=== PATIENT | male | born 1955 | race Caucasian/White ===

== ENCOUNTER 2017-10-19 15:00 | Outpatient (RCR) | payer BC, SELFPAY ==
--- NOTE | 2017-08-19 08:52 | HP.PTEVAL ---
Patient's Visit Information DI BOWMAN is a 62 year old M referred to Physical Therapy by MD STEVE Ayoub with a diagnosis of R total shoulder replacement. Date of Evaluation: 08/18/17 Physical Therapist: Samuel Doss - Visit Plan Frequency: 2x /Week Duration: 2-4 Months Plan: Start with phase I progress this to HEP with spouse. Progress per protocol. Goal of 130deg of flexion and 30deg of ER passively by 4 weeks. - Subjective Subjective: Pt. 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 DOS 08/09/17. Pt. reports minimal pain at this point in time. Pt. reports that his other shoulder will likely need replaced as well, planning on having it down in March of 2018. Pt. remains in sling, but does take it off for periods of time at home while resting. Pt. has been having working on shoulder flexion to ~90deg without issues. Pt. is having difficulty sleeping secondary to inability to get comfortable. Pt. recently saw physician who was happy with current progress. Pt. 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 Pt. is hopeful to increase his ROM and get back to all recreational activities without limitations. - Pain R shoulder Pain Intensity (Out of 10): 0 Pain Intensity Range: 0, 2 - Objective POSTURE: Pt. keeps arm in guarded positioing while out of sling. Pt. has normal shoulder heights bilaterally. Pt. has slight FH positioning bilaterally with protracted scapulea bilaterally. PALAPTION: Pt. has normal well healing anterior incision. Pt. has no signs of infection, minimal heat/redness. Pt. has slight brusing and edeam in bicep and elbow. Pt. has presence of R bicep rupture without repair, (known to patient). NEUROLOGICAL: Pt. has normal sensation to light and sharp touch of bilateral UEs. Pt. has 2+ triceps and biceps bilaterally. ROM: L shoulder AROM- flexion 98deg, abd 88deg, functonal ER external auditory meatus, functional IR L5. R shoulder PROM- flexion- 116deg, scaption 118deg, ER at side 25deg. Pt. had soreness at end ranges, with empty end feels. Pt. has full elbow ROM, mild stiffness with extension. MMT- RUE not testing. LUE- elbow- 5/5 throughout; shoulder- flexion 4+/5, abd 4/5, ext 5/5, ER 4+/5, IR 4+/5. - Goals Goal 1:: Pt. to be I with HEP. Goal Time Frame: 4-6 Weeks Goal 2:: Pt. to have increased PROM of R shoulder to flexion 170deg, abd 170deg, ER 50deg, IR 50deg. Goal Time Frame: 4-6 Weeks Goal 3:: Pt. to have full R shoulder AROM to allow for increased ability to complete all functional mobility without increase in symptoms. Goal Time Frame: 6-8 Weeks Goal 4:: Pt. to have increased R shoulder strength to 4+/5 throughout allowing for increased tolerance with all recreational and work activities. Goal Time Frame: 8-12 Weeks Goal 5:: Pt. to sleep throughout the night without increase in symptoms. Goal Time Frame: 2-4 Weeks Goal 6:: Pt. to return to all recreational activities without increase in symptoms. Goal Time Frame: 12-16 Weeks - Rehabilitation Potential Physical Therapy Diagnosis: Pt. has signs and symptoms consistent with acute R total shoulder replacement with subsequent hypombility, weakness, increased pain and decreased functional use of RUE. Pt. would benefit from PT to initially increase his ROM, progressing to AROM and finally strengthening as able to get back to all recreational and work activities without limitations. Rehabilitation Potential: Excellent - Anticipated Interventions Patient/Client Instruction: Educate patient on: Condition, Plan of Care, Risk Factors, Benefits of Fitness Program For the Purpose of:: To improve decision making, To facilitate caregiver knowledge, To improve self management, To prevent re-injury, To improve ability to perform tasks related to life management, To improve tolerance to ADL's Therapeutic Exercise to Include: Strength training, Power training, Endurance training, Flexibilty training, Passive ROM, Active ROM, Scapular Strength/Stabilization For the Purpose of:: To decrease pain, To decrease swelling/inflammation, To increase ROM, To improve nutrient delivery to tissue, To increase oxygenation perfusion, To improve muscle performance and motor function, To increase tolerance to activity/condition/position, To improve performance and independence with ADL's, To improve health of tissue, To decrease soft tissue restriction, To increase flexibility/ROM Manual Therapy Techniques to Include: Mobilization, Passive ROM, Soft tissue mobilization For the Purpose of:: To decrease pain, To decrease swelling/inflammation, To increase ROM, To improve nutrient delivery to tissue IF ES: Yes Cryotherapy (ice pack, ice massage): Yes For the Purpose of:: To decrease pain, To decrease swelling/inflammation, To increase ROM Thank you for the opportunity to evaluate your patient. For Medicare and Medicare HMO plans, please review the plan of care and approve it. It will need to be FAXED BACK to us at [phone] for Medicare purposes. Please let me know if there are questions or concerns regarding this plan of care. Physician Signature: Date:
--- NOTE | 2017-10-21 13:35 | HP.PTDCSUM_ITS ---
HP - PT D/C Summary It has been my pleasure to treat DI BOWMAN under orders from Dar Stern MD, for the diagnosis of R total shoulder replacement for a total of 7 visit(s). Discharge Date: 10/19/17 Please see the following information for a summary of their discharge status. - Subjective Subjective: Pt. reports no issues currently. He has been back to mulching and some work without pain, but muscle soreness. I talked to patient about not over doing and continuing to strengthen with in eye sight ranges. Pt. consents. - Pain R shoulder Pain Intensity (Out of 10): 0 - Overall Improvement % Improvement: 95 - Objective Objective/Function: ROM- R shoulder- flexion 175deg, abd 173deg, functional ER C6, functional IR T12. No pain with testing this date. MMT- R shoulder- flexion 4+/5, abd 4+/5, ext 5/5, ER 4+/5, IR 5/5. No pain with testing. Pt. has expected ROM and progression of strengthening as expected. Pt. report no issues with work or with sleeping at this point in time. He is back to work and household work without issues. He does report increased muscle soreness with activities, but is very pleased with progress. - Goals Goal 1:: Pt. to be I with HEP. Goal Progress: Goal Met Goal 2:: Pt. to have increased PROM of R shoulder to flexion 170deg, abd 170deg , ER 50deg, IR 50deg. Goal Progress: Goal Met Goal 3:: Pt. to have full R shoulder AROM to allow for increased ability to complete all functional mobility without increase in symptoms. Goal Progress: Goal Met Goal 4:: Pt. to have increased R shoulder strength to 4+/5 throughout allowing for increased tolerance with all recreational and work activities. Goal Progress: Progressing Goal 5:: Pt. to sleep throughout the night without increase in symptoms. Goal Progress: Goal Met Goal 6:: Pt. to return to all recreational activities without increase in symptoms. Goal Progress: Goal Met - Plan Plan: Pt. will be DC to HEP at this point in time. - D/C Information Discharge Comments: Pt. progressed as expected with PT. Pt. has close to full ROM and has improving strength. Pt. is back to all work and house hold work with minimal issues. He is progressing with strengthening as expected and is to progress with HEP for strengthening. Pt. will be DC from PT at this point in time and is to continue with HEP as instructed, pt. consents. If there are questions or concerns regarding this patient's physical therapy, please feel free to call me at [phone]. Thank you for the referral of this patient. Sincerely, Samuel Doss
== END 2017-10-19 19:00 | disposition home or self-care (01) ==
LOC: PT 15:00
PROVIDERS: Family Provider Family Medicine; PCP Family Medicine; Visit Provider Orthopaedic Surgery
DX: M19.011 Primary osteoarthritis, right shoulder (principal)
CPT/HCPCS: 97110; 97161

== ENCOUNTER 2018-06-08 18:30 | Outpatient (RCR) | payer BC, SELFPAY ==
--- NOTE | 2018-03-16 11:07 | HP.PTEVAL ---
Patient's Visit Information DI BOWMAN is a 63 year old M referred to Physical Therapy by UBALDO KEENAN with a diagnosis of Left total shoulder and biceps tenodesis. Date of Evaluation: 03/15/18 Physical Therapist: Samuel Doss - Visit Plan Frequency: 2-3x /Week Duration: 6-8 weeks Plan: Follow Dr. Dar Stern's total shoulder protocol: week 1-4 work passive, progress to active/assistive weeks 5 and 6, begin resisted week 7 increasing strength as tolerated. - Subjective Subjective: Pt is here today for an initial evaluation of their left total shoulder and biceps tendesis performed on 02/28/2018. pt reports on this date wearing a shoulder sling. pt does not wear the sling around the home but wears it when out of the house for safety and increased security. 7 months ago pt received a right total shoulder. pt reports increased sorness in their right shoulder due to increased use of right shoulder following the left shoulder's surgery. pt has been sleeping in a recliner and reports significant difficulty sleeping. Pt continues to sleep in sling and reports tingling in the left hand during the night when increased pressure is placed on the left shoulder while sleeping. 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 Pt plans to return to work in one week following this date. Pt is left hand dominant. Pt. denies N/T in either UE. Pt. did have swelling in his hand, but is no longer present. He has taken his arm out of the sling at home, but not in community. Pt. is eager to get back to all work and recreational activites without limitations. - Pain Left Shoulder Pain Intensity (Out of 10): Unrated - Objective POSTURE: significant forward head with rounded shoulders. increased kyphosis. Pt. is able to correct with VC/TCing, no increase in symptoms with postural changes. PALPATION: scar is healing properly. no sign of infection. Pt. has slight swelling at shoulder, non pitting. NEURO: equal sensation bilat. no numbness or tingling. Pt. has 2+ bilateral biceps and triceps DTR. PROM: Right UE: WFL; Left UE: shoulder- flexion- 0-130, ER- 0-25, scaption 130deg. flexion and ER were the only motions measured this date due to surgical precautions. AROM was not tested this date. MMT: not tested this date due to surgical precautions. 4+/5 on RUE throughout. - Goals Goal 1:: Pt I with HEP Goal Time Frame: 6-8 Weeks Goal 2:: Pt reprots 0/10 pain in their L shoulder with motion in all directions allowing for increased ability to complete all ADls. Goal Time Frame: 6-8 Weeks Goal 3:: Pt improves L shoulder ROM symmetrical to R side without increase in symptoms. Goal Time Frame: 6-8 Weeks Goal 4:: Pt reports being able to sleep uninterrupted entire night. Goal Time Frame: 4-6 Weeks Goal 5:: pt improves strength to 4+/5 in all effected musculature Goal Time Frame: 6-8 Weeks - Rehabilitation Potential Physical Therapy Diagnosis: pt presents with signs and symptoms consistent with left total shoulder and biceps tenodesis. pt presents with decreased PROM inhibiting performance of ADLs and IADLs. pt would benefit from PT to promote healing, increased strength, and improved ROM allowing for the pt to return to work and perform all ADLs and IADLs. Rehabilitation Potential: Excellent - Anticipated Interventions Patient/Client Instruction: Educate patient on: Condition, Plan of Care, Risk Factors, Benefits of Fitness Program For the Purpose of:: To decrease pain, To decrease swelling/inflammation, To increase ROM, To improve muscle performance and motor function, To improve ability to perform ADL's, To increase tolerance to activity/condition/position Therapeutic Exercise to Include: Strength training, Power training, Passive ROM, Active ROM For the Purpose of:: To decrease pain, To increase ROM, To improve muscle performance and motor function, To improve ability to perform ADL's, To increase tolerance to activity/condition/position, To improve ability of physical actions for home/community/work/leisure Manual Therapy Techniques to Include: Scar massage For the Purpose of:: To decrease pain, To improve nutrient delivery to tissue Cryotherapy (ice pack, ice massage): Yes Thermo therapy (hot pack): Yes For the Purpose of:: To decrease pain, To decrease swelling/inflammation Thank you for the opportunity to evaluate your patient. For Medicare and Medicare HMO plans, please review the plan of care and approve it. It will need to be FAXED BACK to us at [phone] for Medicare purposes. Please let me know if there are questions or concerns regarding this plan of care. Physician Signature: Date:
--- NOTE | 2018-05-02 07:43 | HP.PTREVAL ---
UBALDO KEENAN, It has been my pleasure to treat DI BOWMAN over the last 7 visits for Left total shoulder and biceps tenodesis. Please see the progress note below for an update on the physical therapy plan of care! Subjective: Pt. reports 'I am getting better.' He reports that he has returned to work, but has not been using his L arm as much as he would like to. He reports having 1-2/10 soreness this date. Pt. reports being HEP compliant without increase in symptoms. Objective/Function: R shoulder- AROM- flexion 120deg, abd 120 deg, ext 50deg, functional ER C2, functional IR L5. PROM- flexion 160deg abd 155deg, ER at 90deg of abd 80deg. MMT- R shoulder- flexion 4/5, abd 4/5, ext 4/5, ER 4/5, IR 4/5. Pt. is able to complete most ADLs that do not involve lifting over his head, he still has to complete UB dressing with caution. Pt. denies N/T of either UE. Pt. is doing well, but continues to present with L UE weakness and would benefit from PT to increase strength and stability of L total shoulder arthroplasty. Plan Plan: Requesting date extension of visits in order to work on LUE strengthening and end range of shoulder motion. Goals Goal 1:: Pt I with HEP Goal Time Frame: 6-8 Weeks Goal Progress: Progressing Goal 2:: Pt reprots 0/10 pain in their L shoulder with motion in all directions allowing for increased ability to complete all ADls. Goal Time Frame: 6-8 Weeks Goal Progress: Progressing Goal 3:: Pt improves L shoulder ROM symmetrical to R side without increase in symptoms. Goal Time Frame: 6-8 Weeks Goal Progress: Progressing Goal 4:: Pt reports being able to sleep uninterrupted entire night. Goal Time Frame: 4-6 Weeks Goal Progress: Goal Met Goal 5:: pt improves strength to 4+/5 in all effected musculature Goal Time Frame: 6-8 Weeks Goal Progress: Progressing Anticipated Interventions Patient/Client Instruction: Educate patient on: Condition, Plan of Care, Risk Factors, Benefits of Fitness Program For the Purpose of:: To decrease pain, To decrease swelling/inflammation, To increase ROM, To improve muscle performance and motor function, To improve ability to perform ADL's, To increase tolerance to activity/condition/position Therapeutic Exercise to Include: Strength training, Power training, Passive ROM, Active ROM For the Purpose of:: To decrease pain, To increase ROM, To improve muscle performance and motor function, To improve ability to perform ADL's, To increase tolerance to activity/condition/position, To improve ability of physical actions for home/community/work/leisure Manual Therapy Techniques to Include: Scar massage For the Purpose of:: To decrease pain, To improve nutrient delivery to tissue Cryotherapy (ice pack, ice massage): Yes Thermo therapy (hot pack): Yes For the Purpose of:: To decrease pain, To decrease swelling/inflammation Please do not hesitate to contact me at [phone] by phone or if you have questions or concerns regarding this new plan of care! Sincerely, Samuel Doss
--- NOTE | 2018-09-05 18:14 | HP.PT.NRP ---
HP - Discharge Summary (1) - Patient Information DI BOWMAN was seen in my office for initial evaluation on 03/15/18. The following Plan of Care was established for this patient: Initial Frequency: 2-3x /Week Initial Duration: 6-8 weeks - Anticipated Interventions Patient/Client Instruction: Educate patient on: Condition, Plan of Care, Risk Factors, Benefits of Fitness Program For the Purpose of:: To decrease pain, To decrease swelling/inflammation, To increase ROM, To improve muscle performance and motor function, To improve ability to perform ADL's, To increase tolerance to activity/condition/position Therapeutic Exercise to Include: Strength training, Power training, Passive ROM, Active ROM For the Purpose of:: To decrease pain, To increase ROM, To improve muscle performance and motor function, To improve ability to perform ADL's, To increase tolerance to activity/condition/position, To improve ability of physical actions for home/community/work/leisure Manual Therapy Techniques to Include: Scar massage For the Purpose of:: To decrease pain, To improve nutrient delivery to tissue Cryotherapy (ice pack, ice massage): Yes Thermo therapy (hot pack): Yes For the Purpose of:: To decrease pain, To decrease swelling/inflammation This patient was last seen in our office 06/08/18. Pertinent comments regarding their Physical therapy will appear below: Pt. was seen for his R reverse total shoulder arthroplasty. Pt. was treated with strengthening and ROM. Pt. progressed very well with his ROM and is progressing with his strengthening. Pt. as not been seen in several months and will be DC from PT at this point intime. At this point I will be discontinuing this patient from physical therapy. I would be happy to see this patient again in the future if found appropriate by the physician. Thank you! Samuel Doss, GISELLET
== END 2018-06-08 19:00 | disposition home or self-care (01) ==
LOC: PT 18:30
PROVIDERS: Family Provider Family Medicine; PCP Family Medicine
DX: M19.012 Primary osteoarthritis, left shoulder (principal)
CPT/HCPCS: 97110; 97161

== ENCOUNTER → 2018-06-28 07:09 | Outpatient (CLI) | payer BC, SELFPAY ==
[2018-06-28 10:41] LABS: Hemoglobin A1c 5.6 % (4.2-6.3)
[2018-06-28 10:44] LABS: Anion Gap 8 (5-15); BUN 27 mg/dL (7-18); BUN/Creat Ratio 26.7 RATIO (10-20); Calcium,Total 8.8 mg/dL (8.5-10.1); Chloride 105 mmol/L (98-107); Cholesterol 187 mg/dL (200); Creatinine, Serum 1.01 mg/dL (0.70-1.30); EST Glomerular Filtration Rate 80 mL/min (>60); Est Glom Filt Rate - Afr Amer 97 mL/min (>60); Glucose 87 mg/dL (74-106); High Density Lipoprotein 60 mg/dL; Sodium Level 138 mmol/L (136-145); Triglycerides 91 mg/dL; Very Low Density Lipoprotein 18 mg/dL (5-40)
--- OUTSIDE RECORDS SUMMARY | 2018-08-30 07:25 | XMS RPT_ITS ---
:1955 Author Organization [facility] Address [address] [place] [phone] Phone Care Team Providers Name Role Phone Dar Stern MD Unavailable Reason for Visit Reason For Visit Description Start Date Postop - subsequent visit Preliminary reason for visit data, not yet signed by the author as of left shoulder post Left total shoulder Biceps tenodesis on 02/28/2018 Preliminary reason for visit data, not yet signed by the author as of Chief Complaint Chief Complaint Description Start Date left shoulder post Left total shoulder Biceps tenodesis on 02/28/2018 Preliminary chief complaint data, not yet signed by the author as of Instructions Instruction Description Start Date Patient advised to follow-up with Primary Care Physician for BMI management. Plan of Care Type Date Detail Appointment 03:45 PM Dar Stern MD, [address] [facility], [email or web address], [place], [address], Appointment 03:15 PM Dar Stern MD, [address] [facility], [email or web address], [place], [address], Pending order XR SHOULDER 2 VWS-LT Pending order XR SHOULDER 2 VWS-RT Medications Medication Instructions Start Stop Generic Name NDC Provider Date Date MUCINEX TABLET One tablet / MUCINEX TABLET Dar R twice daily 18 Jarred LA AMOXICILLIN 500 One tablet / AMOXICILLIN [id number] Dar R MG TABS twice daily 18 Jarred LA NAPROSYN 500 MG Take 1 tablet / NAPROXEN [id number] Dar R TABS by mouth 2 30 Jarred MD times a day MULTIVITAMIN One tablet / MULTIVITAMIN Viviana daily Kilbane PA-C NAPROSYN 500 MG Take 1 tablet / NAPROXEN [id number] Dar R TABS by mouth 2 25 Jarred MD times a day OMEPRAZOLE 20 take 1 capsule / OMEPRAZOLE [id number] Rosette MG CPDR once daily 21 Ruma [employer] CLARITIN 10 MG take 1 tablet / LORATADINE 13619733615 Rosette TABS once daily 21 Ruma [employer] LISINOPRIL TABS take 1 tablet / LISINOPRIL TABS 74109785685 Rosette once daily 21 Ruma [employer] (please verify strength) Conditions or Problems Problem Name Problem Onset Status Entry Provider Comment Standard Annotate Code Date Date Description Status post [id number] Active Dar Brasher History of total (SNOMED CT) 08/13 08/13 Jarred LA operative replacement of procedure on right shoulder shoulder Status post [id number] Active Viviana History of total (SNOMED CT) [facility]/04 [facility]-C procedure on left shoulder shoulder Vitamin D [id number] Active Viviana Vitamin D deficiency (SNOMED CT) 07/12 07/12 Kilbane deficiency PA-C Primary 10421240 Active Tay S Degenerative osteoarthritis (SNOMED CT) 07/29 07/29 Ron LA joint disease of left shoulder of shoulder region Primary 86295721 Active Tay S Degenerative osteoarthritis (SNOMED CT) 07/29 07/29 Ron LA joint disease of right of shoulder shoulder region Allergies, Adverse Reactions, Alerts Observed no known allergies at Social History No information available. Vital Signs Date Name Value Unit Description BMI (Body Mass 27.36 kg/m2 Body Mass Index Index) [Ratio] Preliminary vital sign data, not yet signed by the author as of BP Diastolic 82 mm[Hg] blood pressure, diastolic Preliminary vital sign data, not yet signed by the author as of BP Systolic 114 mm[Hg] blood pressure, systolic Preliminary vital sign data, not yet signed by the author as of Heart Rate 88 /min pulse rate E&M Preliminary vital sign data, not yet signed by the author as of Height 70 [in_us] height E&M Preliminary vital sign data, not yet signed by the author as of Height 178 cm height in centimeters E&M Preliminary vital sign data, not yet signed by the author as of Weight Measured 190 [lb_av] weight E&M Preliminary vital sign data, not yet signed by the author as of Weight Measured 86 kg weight in kilograms E&M Preliminary vital sign data, not yet signed by the author as of Results Date Name Value Unit Range Flag Description Office Visit: Postop - subsequent visit, Rm: 42 MEDS REVIEW Done Documentation of current medications (procedure) Preliminary observation data, not yet signed by the author as of Preliminary observation data, not yet signed by the author as of Clinical Summary: [facility] OOP account number Procedures Code Procedure Name Date Entry Date [id number]-67059 Physical Therapy G8730 Pain assessment documented as positive - follow-up documented G8427 Current medications documented 1036F Tobacco screening was negative - non user G8417 BMI documented as above normal parameters - follow-up documented G8783 Blood pressure within normal parameters - no follow-up required [facility]-[id number] Patient Encounter Medications Administered No information available. Immunizations No information available. Advance Directives There may be information available, but it has not been provided by the sender. Assessments There may be information available, but it has not been provided by the sender. Review of Systems There may be information available, but it has not been provided by the sender. Family History There may be information available, but it has not been provided by the sender. History of Past Illness There may be information available, but it has not been provided by the sender. History of Present Illness There may be information available, but it has not been provided by the sender.
--- OUTSIDE RECORDS SUMMARY | 2018-08-30 07:25 | XMS RPT_ITS ---
:1955 Author Organization [facility] Care Team Providers Name Role Phone DMITRI CASE III Attending Unavailable Cebul IIIDmitri Attending Unavailable Cebul III, Dmitri Primary Care Unavailable Suzanl Dmitri GALARZA Referring Unavailable DAR WESLEY Attending Unavailable DAR WESLEY Referring Unavailable Cebul III, Dmitri Primary Care Unavailable RAFAT MONDRAGON Attending Unavailable RAFAT MONDRAGON Referring Unavailable Cebul III, Dmitri Primary Care Unavailable RAFAT MONDRAGON Consulting Unavailable PROBLEMS PROBLEMS DATE TYPE CONDITION / CODE ATTENDING STATUS SOURCE 06/28/2018 Unknown Z79.899 - Other Dmitri Case III Active [facility] (current[facility] drug Hospital therapy / Repository Z79.899(ICD-10) 06/08/2018 Unknown M19.012 - RAFAT MONDRAGON Active [facility] osteoarthritis, Hospital left shoulder / Repository M19.012(ICD-10) 10/22/2017 Unknown M19.011 - DAR WESLEY Active [facility] osteoarthritis, Hospital right shoulder / Repository M19.011(ICD-10) PROCEDURES PROCEDURES No Procedure Records FoundRESULTS RESULTS HEMOGLOBIN A1C Collected: 06/28/2018 Status: F Source: [place] 7:14 AM [facility] REPOSITORY TYPE CODE TESTS RESULT OUT OF RANGE REFERENCE UNITS LAB L501.9985 4.2-6.3 % Normal HGB A1C 5.6 Performed By: #### L501.9985 #### [facility] [address] [place], [place], [address] BASIC METABOLIC Collected: 06/28/2018 Status: F Source: [place] PROFILE (BMP) 7:14 AM [facility] REPOSITORY TYPE CODE TESTS RESULT OUT OF RANGE REFERENCE UNITS LAB L501.0100 74-106 mg/dL Normal GLU 87 Result Comment: Please note revised GLUCOSE reference range effective 2017. LAB L501.1000 7-18 mg/dL High BUN 27 LAB L501.1100 0.70-1.30 mg/dL Normal CREAT,SERUM 1.01 Result Comment: The validity of the calculated GFR AND GFRAA in patients over 70 years has not been determined. Clinical correlation is essential. LAB L501.1110 >60 mL/min Normal EST GFR 80 Result Comment: Non- GFR Calc LAB L501.1115 >60 mL/min Normal EST GFR - AA 97 Result Comment: GFR Calc LAB L501.1300 10-20 RATIO High BUN/CRE 26.7 LAB L501.2200 8.5-10.1 mg/dL CA Normal 8.8 LAB L501.5300 136-145 mmol/L NA Normal 138 LAB L501.5600 3.5-5.1 mmol/L K Normal 4.0 LAB L501.5900 98-107 mmol/L CL Normal 105 LAB L501.6100 21.0-32.0 mmol/L Normal CO2 25.0 LAB L501.6200 5-15 Normal GAP 8 Performed By: #### L500.2500, L500.4100 #### [facility] [address] [place], [address] LIPID PROFILE Collected: 06/28/2018 Status: F Source: [place] 7:14 AM [facility] REPOSITORY TYPE CODE TESTS RESULT OUT OF RANGE REFERENCE UNITS LAB L501.4900 200 mg/dL Normal CHOL 187 Result Comment: <200 mg/dL Desirable 200-240 mg/dL Borderline >240 mg/dL High Risk LAB L501.5000 mg/dL Normal TRIG 91 Result Comment: The drugs N-Acetylcysteine and Metamizole may falsely depress this assay. Serum Triglycerides Reference Interval Normal <150 mg/dL Borderline high 150 - 199 mg/dL High 200 - 499 mg/dL Very High > or = 500 mg/dL LAB L501.6400 mg/dL Normal HDL 60 Result Comment: The drugs N-Acetylcysteine and Metamizole may falsely depress this assay. Reference Range HDL <40 mg/dL Low HDL Cholesterol HDL >or= 60 mg/dL High HDL Cholesterol LAB L501.6500 0-130 mg/dL Normal LDL 109 LAB L501.6600 5-40 mg/dL Normal VLDL 18 Performed By: #### L500.2500, L500.4100 #### [facility] [address] [place], [address] PROGRESS Observed: 05/22/2018 Status: COMPLETED Source: [place] 9:33 AM [facility] [place] REPOSITORY HNO ID: [id number] Author: Alie ([facility]) TyeshaKlaus Service: (none) Author Type: Nurse Practitioner Type: Progress Notes Filed: 05/22/2018 9:46 AM Note Text: Subjective HPI Di Vazquez is a 63 year old male who presents with 7 days of cold symptoms and now has chest congestion, cough, feeling hot and cold chills. He feels the cough is worsening. His granddaughter has bronchitis. He has taken naproxen and tylenol cold at home. Review of Systems Constitutional: Positive for chills. Negative for fever. HENT: Positive for congestion, ear pain (right ear), hearing loss and sinus pain. Negative for sore throat. Respiratory: Positive for cough, sputum production and shortness of breath (tightness). Cardiovascular: Negative. Negative for chest pain. Neurological: Positive for headaches. Negative for dizziness. BP 110/78 Pulse 86 Temp 37.1 ?C (98.8 ?F) (Tympanic) Resp 16 Wt 90.7 kg (200 lb) SpO2 100% BMI 30.31 kg/m? 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 Dr. Wesley fluticasone (FLONASE) 50 mcg/actuation nasal spray Use 1 Cecil in each nostril once daily. lisinopril-hydrochlorothiazide (PRINZIDE,ZESTORETIC) 10-12.5 mg per tablet Take 1 tablet by mouth once daily. loratadine (CLARITIN) 10 mg tablet CLARITIN 10 MG TABS multivitamin tablet Take 1 tablet by mouth once daily. naproxen (NAPROSYN) 500 mg tablet Take 1 tablet by mouth twice daily as needed (for pain/inflammation). Take with food. Omeprazole Magnesium (PRILOSEC OTC) 20 mg tablet Take 1 tablet by mouth daily before breakfast. 1/2 hr before meal. FAMILY HISTORY Problem Relation Age of Onset - Cancer Mother melanoma - Arthritis Mother rheumatiod - Heart Paternal Grandfather - Diabetes Maternal Grandmother - COPD Paternal Grandfather - Hypertension Father - Heart Father pacemaker - Hypertension Sister Social History Substance Use Topics - Smoking status: Never Smoker - Smokeless tobacco: Never Used - Alcohol use Yes Comment: occasionally Objective Physical Exam Constitutional: He is well-developed, well-nourished, and in no distress. HENT: Right Ear: Tympanic membrane, external ear and ear canal normal. Left Ear: Tympanic membrane, external ear and ear canal normal. Nose: Mucosal edema, rhinorrhea and sinus tenderness present. Mouth/Throat: Uvula is midline, oropharynx is clear and moist and mucous membranes are normal. No posterior oropharyngeal edema or posterior oropharyngeal erythema. Cardiovascular: Normal rate and regular rhythm. Pulmonary/Chest: Effort normal. No respiratory distress. He has wheezes (few, scattered). He has no rales. Neurological: He is alert. Skin: Skin is warm and dry. Nursing note and vitals reviewed. ASSESSMENT/PLAN: 1. Sinobronchitis - ICD9: 473.9, 490, ICD10: J32.9, J40 - Will begin treatment with Augmentin 875 mg PO BID for 10 days - The patient should also be given mucinex for the first 5- 7 days of treatment. - Supportive care with plenty of fluids, rest, and analgesia prn. - GUAIFENESIN ER 600 MG TABLET, EXTENDED RELEASE 12 HR - AMOXICILLIN 875 MG-POTASSIUM CLAVULANATE 125 MG TABLET - ALBUTEROL SULFATE HFA 90 MCG/ACTUATION AEROSOL INHALER - Follow-up with your PCP in 3-5 days if symptoms have not improved or sooner if symptoms worsen - Discussed red flags and need for immediate medical evaluation if any occur. - Discussed supportive care treatment with fluids, rest and analgesia. - Discussed expected course of illness Alie Carballo APRN.CNP CNOV Observed: 05/22/2018 Status: COMPLETED Source: [place] 9:30 AM [facility] REPOSITORY Office Visit (WSTR) VAZQUEZDI STRICKLAND ([id number]) 1955 M Date Time Provider Department 05/22/18 9:30 AM ALIE CARBALLO ([facility]) [facility] During your visit today, we recorded the following information about you: Temperature Pulse Respiration Blood pressure 98.8 degrees 86/minute 16/minute 110/78 Weight 90.7 kg Alie Carballo APRN.CNP 05/22/2018 9:46 AM Signed Subjective HPI Di Vazquez is a 63 year old male who presents with 7 days of cold symptoms and now has chest congestion, cough, feeling hot and cold chills. He feels the cough is worsening. His granddaughter has bronchitis. He has taken naproxen and tylenol cold at home. Review of Systems Constitutional: Positive for chills. Negative for fever. HENT: Positive for congestion, ear pain (right ear), hearing loss and sinus pain. Negative for sore throat. Respiratory: Positive for cough, sputum production and shortness of breath (tightness). Cardiovascular: Negative. Negative for chest pain. Neurological: Positive for headaches. Negative for dizziness. BP 110/78 Pulse 86 Temp 37.1 ?C (98.8 ?F) (Tympanic) Resp 16 Wt 90.7 kg (200 lb) SpO2 100% BMI 30.31 kg/m? 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 Dr. Wesley fluticasone (FLONASE) 50 mcg/actuation nasal spray Use 1 Cecil in each nostril once daily. lisinopril-hydrochlorothiazide (PRINZIDE,ZESTORETIC) 10-12.5 mg per tablet Take 1 tablet by mouth once daily. loratadine (CLARITIN) 10 mg tablet CLARITIN 10 MG TABS multivitamin tablet Take 1 tablet by mouth once daily. naproxen (NAPROSYN) 500 mg tablet Take 1 tablet by mouth twice daily as needed (for pain/inflammation). Take with food. Omeprazole Magnesium (PRILOSEC OTC) 20 mg tablet Take 1 tablet by mouth daily before breakfast. 1/2 hr before meal. FAMILY HISTORY Problem Relation Age of Onset - Cancer Mother melanoma - Arthritis Mother rheumatiod - Heart Paternal Grandfather - Diabetes Maternal Grandmother - COPD Paternal Grandfather - Hypertension Father - Heart Father pacemaker - Hypertension Sister Social History Substance Use Topics - Smoking status: Never Smoker - Smokeless tobacco: Never Used - Alcohol use Yes Comment: occasionally Objective Physical Exam Constitutional: He is well-developed, well-nourished, and in no distress. HENT: Right Ear: Tympanic membrane, external ear and ear canal normal. Left Ear: Tympanic membrane, external ear and ear canal normal. Nose: Mucosal edema, rhinorrhea and sinus tenderness present. Mouth/Throat: Uvula is midline, oropharynx is clear and moist and mucous membranes are normal. No posterior oropharyngeal edema or posterior oropharyngeal erythema. Cardiovascular: Normal rate and regular rhythm. Pulmonary/Chest: Effort normal. No respiratory distress. He has wheezes (few, scattered). He has no rales. Neurological: He is alert. Skin: Skin is warm and dry. Nursing note and vitals reviewed. ASSESSMENT/PLAN: 1. Sinobronchitis - ICD9: 473.9, 490, ICD10: J32.9, J40 - Will begin treatment with Augmentin 875 mg PO BID for 10 days - The patient should also be given mucinex for the first 5- 7 days of treatment. - Supportive care with plenty of fluids, rest, and analgesia prn. - GUAIFENESIN ER 600 MG TABLET, EXTENDED RELEASE 12 HR - AMOXICILLIN 875 MG-POTASSIUM CLAVULANATE 125 MG TABLET - ALBUTEROL SULFATE HFA 90 MCG/ACTUATION AEROSOL INHALER - Follow-up with your PCP in 3-5 days if symptoms have not improved or sooner if symptoms worsen - Discussed red flags and need for immediate medical evaluation if any occur. - Discussed supportive care treatment with fluids, rest and analgesia. - Discussed expected course of illness CLARE Jesus APRN.CNP 05/22/2018 9:40 AM Signed ASSESSMENT/PLAN: 1. Sinobronchitis - ICD9: 473.9, 490, ICD10: J32.9, J40 - Will begin treatment with Augmentin 875 mg PO BID for 10 days - The patient should also be given mucinex for the first 5- 7 days of treatment. - Supportive care with plenty of fluids, rest, and analgesia prn. - GUAIFENESIN ER 600 MG TABLET, EXTENDED RELEASE 12 HR - AMOXICILLIN 875 MG-POTASSIUM CLAVULANATE 125 MG TABLET - ALBUTEROL SULFATE HFA 90 MCG/ACTUATION AEROSOL INHALER - Follow-up with your PCP in 3-5 days if symptoms have not improved or sooner if symptoms worsen - Discussed red flags and need for immediate medical evaluation if any occur. - Discussed supportive care treatment with fluids, rest and analgesia. - Discussed expected course of illness Alie Carballo APRN.[facility] ACUTE BRONCHITIS: You have acute bronchitis. This means the airway passages in your lungs are inflamed. Bronchitis may be caused by viruses or bacteria. Inhaling cigarette smoke will always make it worse. Exposure to irritating chemicals or second hand smoke as well as allergies can contribute to bronchitis. Repeat episodes of bronchitis may cause lifelong lung problems. Acute bronchitis is usually treated with rest, fluids, cough medicine, and possibly antibiotics or inhaled medicine to open up the small airways. It is very important that you avoid smoke and drink increased amounts of fluids. A cool air vaporizer can help thin bronchial secretions. This makes it easier to cough and clear your chest. If you are a cigarette smoker, consider using nicotine gum or skin patches to help you withdraw. Recovery from bronchitis is often slow, but you should start feeling better after 2-3 days of treatment. Please call your doctor or return here if you have any of the following symptoms: - Increased fever, chills, or chest pain. - Severe shortness of breath or bloody sputum. - Do not improve after 3 days of proper treatment. Referring Provider: SELF [[id number]] Allergies As of Date: 05/22/2018 Noted Allergy Reaction NO KNOWN DRUG ALLERGIES 05/27/2005 Date Reviewed: 05/22/2018 Reviewed by: Alie ([facility]) Haris - Fully Assessed Reason for Visit: Cough [28] Primary Visit Diagnosis:Sinobronchitis [J32.9, J40] Order(s):guaiFENesin (MUCINEX) 600 mg 12 hr tabletTake 1 tablet by mouth twice daily for 10 days.Disp: 20 tabletRfl: 0 amoxicillin-clavulanic acid (AUGMENTIN) 875-125 mg per tabletTake 1 tablet by mouth twice daily for 10 days.Disp: 20 tabletRfl: 0 albuterol HFA (VENTOLIN HFA) 90 mcg/actuation inhalerInhale 2 Puffs as instructed every 4 hours as needed for Wheezing/Shortness of Breath.Disp: 1 InhalerRfl: 0 Prescriptions as of 05/22/2018 Sig: CHOLECALCIFEROL (VITAMIN D3) * Take 1 capsule by mouth once * FLUTICASONE 50 MCG/ACTUATION * Use 1 Cecil in each nostril o* LISINOPRIL 10 MG-HYDROCHLOROT* Take 1 tablet by mouth once d* LORATADINE 10 MG TABLET CLARITIN 10 MG TABS MULTIVITAMIN TABLET Take 1 tablet by mouth once d* NAPROXEN 500 MG TABLET Take 1 tablet by mouth twice * OMEPRAZOLE MAGNESIUM 20 MG TA* Take 1 tablet by mouth daily * ALBUTEROL SULFATE HFA 90 MCG/* Inhale 2 Puffs as instructed * AMOXICILLIN 875 MG-POTASSIUM * Take 1 tablet by mouth twice * GUAIFENESIN ER 600 MG TABLET,* Take 1 tablet by mouth twice * Problem List As Of Date 05/22/2018 Noted Resolved Lumbago [M54.5] INVALID FOR*05/24/2014 Sprain and strain of unspecified site of should*INVALID FOR*05/24/2014 Hyperlipidemia with target LDL less than 130 [E*INVALID FOR* Essential hypertension, benign [I10] INVALID FOR* Supraspinatus tendon tear [S46.819A] INVALID FOR* Degenerative disc disease, lumbar [M51.36] INVALID FOR* Derangement of medial meniscus of left knee due*INVALID FOR* Benign prostatic hyperplasia with lower urinary*INVALID FOR* Osteoarthritis of left shoulder [M19.012] INVALID FOR* Osteoarthritis of right shoulder [M19.011] INVALID FOR* Spondylosis of lumbar region without myelopathy*INVALID FOR* Other instructions from your clinician: ASSESSMENT/PLAN: 1. Sinobronchitis - ICD9: 473.9, 490, ICD10: J32.9, J40 - Will begin treatment with Augmentin 875 mg PO BID for 10 days - The patient should also be given mucinex for the first 5-7 days of treatment. - Supportive care with plenty of fluids, rest, and analgesia prn. - GUAIFENESIN ER 600 MG TABLET, EXTENDED RELEASE 12 HR - AMOXICILLIN 875 MG-POTASSIUM CLAVULANATE 125 MG TABLET - ALBUTEROL SULFATE HFA 90 MCG/ACTUATION AEROSOL INHALER - Follow-up with your PCP in 3-5 days if symptoms have not improved or sooner if symptoms worsen - Discussed red flags and need for immediate medical evaluation if any occur. - Discussed supportive care treatment with fluids, rest and analgesia. - Discussed expected course of illness Alie Carballo APRN.[facility] ACUTE BRONCHITIS: You have acute bronchitis. This means the airway passages in your lungs are inflamed. Bronchitis may be caused by viruses or bacteria. Inhaling cigarette smoke will always make it worse. Exposure to irritating chemicals or second hand smoke as well as allergies can contribute to bronchitis. Repeat episodes of bronchitis may cause lifelong lung problems. Acute bronchitis is usually treated with rest, fluids, cough medicine, and possibly antibiotics or inhaled medicine to open up the small airways. It is very important that you avoid smoke and drink increased amounts of fluids. A cool air vaporizer can help thin bronchial secretions. This makes it easier to cough and clear your chest. If you are a cigarette smoker, consider using nicotine gum or skin patches to help you withdraw. Recovery from bronchitis is often slow, but you should start feeling better after 2-3 days of treatment. Please call your doctor or return here if you have any of the following symptoms: - Increased fever, chills, or chest pain. - Severe shortness of breath or bloody sputum. - Do not improve after 3 days of proper treatment. Prescriptions ordered this encounter Disp Refills Start End GUAIFENESIN ER 600 MG TABLET, EXTEND* 20 t* 0 05/22/2018 06/01/2018 Route: ORAL Sig: Take 1 tablet by mouth twice daily for 10 days. AMOXICILLIN 875 MG-POTASSIUM CLAVULA* 20 t* 0 05/22/2018 06/01/2018 Route: ORAL Sig: Take 1 tablet by mouth twice daily for 10 days. ALBUTEROL SULFATE HFA 90 MCG/ACTUATI* 1 In* 0 05/22/2018 Route: INHALATION Sig: Inhale 2 Puffs as instructed every 4 hours as needed for Wheezing/Shortness of Breath. Encounter Status:Closed by ALIE CARBALLO on 05/22/18 RE-EVALUATION - PT (1) Observed: 05/02/2018 Status: F Source: [place] 7:43 AM [facility] REPOSITORY [facility] [address] [place] [address]. [address] [place] [address] Fax REEVALUATION / MEDICARE RECERTIFICATION PHYSICAL THERAPY MR#: [id number] Acct: [id number] Name: DI VAZQUEZ Rep #: [id number] : 1955 63 From: Samuel Doss DPT Referring : Status: REG RCR Insurance: [employer] PAY INSURANCE UBALDO KEENAN, It has been my pleasure to treat DI VAZQUEZ over the last 7 visits for Left total shoulder and biceps tenodesis. Please see the progress note below for an update on the physical therapy plan of care! Subjective: Pt. reports 'I am getting better.' He reports that he has returned to work, but has not been using his L arm as much as he would like to. He reports having 1-2/10 soreness this date. Pt. reports being HEP compliant without increase in symptoms. Objective/Function: R shoulder- AROM- flexion 120deg, abd 120 deg, ext 50deg, functional ER C2, functional IR L5. PROM- flexion 160deg abd 155deg, ER at 90deg of abd 80deg. MMT- R shoulder- flexion 4/5, abd 4/5, ext 4/5, ER 4/5, IR 4/5. Pt. is able to complete most ADLs that do not involve lifting over his head, he still has to complete UB dressing with caution. Pt. denies N/T of either UE. Pt. is doing well, but continues to present with L UE weakness and would benefit from PT to increase strength and stability of L total shoulder arthroplasty. Plan Plan: Requesting date extension of visits in order to work on LUE strengthening and end range of shoulder motion. Goals Goal 1:: Pt I with HEP Goal Time Frame: 6-8 Weeks Goal Progress: Progressing Goal 2:: Pt reprots 0/10 pain in their L shoulder with motion in all directions allowing for increased ability to complete all ADls. Goal Time Frame: 6-8 Weeks Goal Progress: Progressing Goal 3:: Pt improves L shoulder ROM symmetrical to R side without increase in symptoms. Goal Time Frame: 6-8 Weeks Goal Progress: Progressing Goal 4:: Pt reports being able to sleep uninterrupted entire night. Goal Time Frame: 4-6 Weeks Goal Progress: Goal Met Goal 5:: pt improves strength to 4+/5 in all effected musculature Goal Time Frame: 6-8 Weeks Goal Progress: Progressing Anticipated Interventions Patient/Client Instruction: Educate patient on: Condition, Plan of Care, Risk Factors, Benefits of Fitness Program For the Purpose of:: To decrease pain, To decrease swelling/inflammation, To increase ROM, To improve muscle performance and motor function, To improve ability to perform ADL's, To increase tolerance to activity/condition/position Therapeutic Exercise to Include: Strength training, Power training, Passive ROM, Active ROM For the Purpose of:: To decrease pain, To increase ROM, To improve muscle performance and motor function, To improve ability to perform ADL's, To increase tolerance to activity/condition/position, To improve ability of physical actions for home/community/work/leisure Manual Therapy Techniques to Include: Scar massage For the Purpose of:: To decrease pain, To improve nutrient delivery to tissue Cryotherapy (ice pack, ice massage): Yes Thermo therapy (hot pack): Yes For the Purpose of:: To decrease pain, To decrease swelling/inflammation Please do not hesitate to contact me at [phone] by phone or if you have questions or concerns regarding this new plan of care! Sincerely, Samuel Doss <Electronically signed by Samuel Doss DPT> 05/02/18 0743 CC: Dmitri Case III, MD; OUT OF TOWN DOCTOR CLS Signed For Medicare only, by signing this I certify the plan of care. Physicians Signature Date INITAL EVALUATION (1) Observed: 03/16/2018 Status: F Source: [place] - [place] 11:07 AM [facility] REPOSITORY [facility] Physical Therapy [address] [place] [address] Fax REHABILITATION SERVICES INITIAL EVALUATION MR#: [id number] Acct: [id number] Name: DI VAZQUEZ Rep #: [id number] : 1955 63 From: Samuel Doss DPT Referring : Status: REG RCR Insurance: [employer] SELF PAY INSURANCE Patient's Visit Information DI VAZQUEZ is a 63 year old M referred to Physical Therapy by UBALDO KEENAN with a diagnosis of Left total shoulder and biceps tenodesis. Date of Evaluation: 03/15/18 Physical Therapist: Samuel Doss - Visit Plan Frequency: 2-3x /Week Duration: 6-8 weeks Plan: Follow Dr. Dar Wesley's total shoulder protocol: week 1-4 work passive, progress to active/assistive weeks 5 and 6, begin resisted week 7 increasing strength as tolerated. - Subjective Subjective: Pt is here today for an initial evaluation of their left total shoulder and biceps tendesis performed on 02/28/2018. pt reports on this date wearing a shoulder sling. pt does not wear the sling around the home but wears it when out of the house for safety and increased security. 7 months ago pt received a right total shoulder. pt reports increased sorness in their right shoulder due to increased use of right shoulder following the left shoulder's surgery. pt has been sleeping in a recliner and reports significant difficulty sleeping. Pt continues to sleep in sling and reports tingling in the left hand during the night when increased pressure is placed on the left shoulder while sleeping. 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 Pt plans to return to work in one week following this date. Pt is left hand dominant. Pt. denies N/T in either UE. Pt. did have swelling in his hand, but is no longer present. He has taken his arm out of the sling at home, but not in community. Pt. is eager to get back to all work and recreational activites without limitations. - Pain Left Shoulder Pain Intensity (Out of 10): Unrated - Objective POSTURE: significant forward head with rounded shoulders. increased kyphosis. Pt. is able to correct with VC/TCing, no increase in symptoms with postural changes. PALPATION: scar is healing properly. no sign of infection. Pt. has slight swelling at shoulder, non pitting. NEURO: equal sensation bilat. no numbness or tingling. Pt. has 2+ bilateral biceps and triceps DTR. PROM: Right UE: WFL; Left UE: shoulder- flexion- 0-130, ER- 0-25, scaption 130deg. flexion and ER were the only motions measured this date due to surgical precautions. AROM was not tested this date. MMT: not tested this date due to surgical precautions. 4+/5 on RUE throughout. - Goals Goal 1:: Pt I with HEP Goal Time Frame: 6-8 Weeks Goal 2:: Pt reprots 0/10 pain in their L shoulder with motion in all directions allowing for increased ability to complete all ADls. Goal Time Frame: 6-8 Weeks Goal 3:: Pt improves L shoulder ROM symmetrical to R side without increase in symptoms. Goal Time Frame: 6-8 Weeks Goal 4:: Pt reports being able to sleep uninterrupted entire night. Goal Time Frame: 4-6 Weeks Goal 5:: pt improves strength to 4+/5 in all effected musculature Goal Time Frame: 6-8 Weeks - Rehabilitation Potential Physical Therapy Diagnosis: pt presents with signs and symptoms consistent with left total shoulder and biceps tenodesis. pt presents with decreased PROM inhibiting performance of ADLs and IADLs. pt would benefit from PT to promote healing, increased strength, and improved ROM allowing for the pt to return to work and perform all ADLs and IADLs. Rehabilitation Potential: Excellent - Anticipated Interventions Patient/Client Instruction: Educate patient on: Condition, Plan of Care, Risk Factors, Benefits of Fitness Program For the Purpose of:: To decrease pain, To decrease swelling/inflammation, To increase ROM, To improve muscle performance and motor function, To improve ability to perform ADL's, To increase tolerance to activity/condition/position Therapeutic Exercise to Include: Strength training, Power training, Passive ROM, Active ROM For the Purpose of:: To decrease pain, To increase ROM, To improve muscle performance and motor function, To improve ability to perform ADL's, To increase tolerance to activity/condition/position, To improve ability of physical actions for home/community/work/leisure Manual Therapy Techniques to Include: Scar massage For the Purpose of:: To decrease pain, To improve nutrient delivery to tissue Cryotherapy (ice pack, ice massage): Yes Thermo therapy (hot pack): Yes For the Purpose of:: To decrease pain, To decrease swelling/inflammation Thank you for the opportunity to evaluate your patient. For Medicare and Medicare HMO plans, please review the plan of care and approve it. It will need to be FAXED BACK to us at [phone] for Medicare purposes. Please let me know if there are questions or concerns regarding this plan of care. Physician Signature: Date: <Electronically signed by Samuel Doss DPT> 03/16/18 1107 CC: Dmitri Case III, MD; [facility] C[facility] Signed For Medicare only, by signing this I certify the plan of care. Physicians Signature Date PROGRESS Observed: 01/16/2018 Status: COMPLETED Source: [place] 10:16 AM [facility] HNO ID: [id number] Author: Lester Mancini Service: (none) Author Type: Nurse Practitioner Type: Progress Notes Filed: 01/16/2018 10:49 AM Note Text: Subjective HPI HPI Di Vazquez is a 62 year old male who presents today for CC of ear pain sinus congestion. This started 1 week ago. Has tried otc medication with mild relief. Symptoms are worsened by nothing. Risk factors hx of allergies, frequent swimming. 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 fluticasone (FLONASE) 50 mcg/actuation nasal spray Use 1 Cecil in each nostril once daily. naproxen (NAPROSYN) 500 mg tablet Take 1 tablet by mouth twice daily as needed (for pain/inflammation). Take with food. Omeprazole Magnesium (PRILOSEC OTC) 20 mg tablet Take 1 tablet by mouth daily before breakfast. 1/2 hr before meal. multivitamin tablet Take 1 tablet by mouth once daily. cholecalciferol, Vitamin D3, (VITAMIN D3) 50,000 unit cap capsule Take 1 capsule by mouth once each week. Dr. Wesley FAMILY HISTORY Problem Relation Age of Onset - Cancer Mother melanoma - Arthritis Mother rheumatiod - Heart Paternal Grandfather - Diabetes Maternal Grandmother - COPD Paternal Grandfather - Hypertension Father - Heart Father pacemaker - Hypertension Sister Social History Substance Use Topics - Smoking status: Never Smoker - Smokeless tobacco: Never Used - Alcohol use Yes Comment: occasionally Review of Systems Constitutional: Negative for chills, fever and weight loss. HENT: Positive for congestion and ear pain. Negative for ear discharge, nosebleeds and sore throat. Respiratory: Positive for cough (mild). Negative for shortness of breath and wheezing. Musculoskeletal: Negative for neck pain. Objective Blood pressure 118/78, pulse 82, resp. rate 16, weight 86.6 kg (191 lb). Physical Exam Constitutional: He is oriented to person, place, and time and well-developed, well-nourished, and in no distress. Non-toxic appearance. He does not have a sickly appearance. No distress. HENT: Head: Normocephalic and atraumatic. Right Ear: Hearing and ear canal normal. There is drainage, swelling and tenderness. Tympanic membrane is erythematous (mild) and bulging. Tympanic membrane is not perforated. Left Ear: Hearing, tympanic membrane, external ear and ear canal normal. Nose: Nose normal. Mouth/Throat: Uvula is midline, oropharynx is clear and moist and mucous membranes are normal. Eyes: Pupils are equal, round, and reactive to light. Conjunctivae and lids are normal. Right eye exhibits no discharge. Left eye exhibits no discharge. No scleral icterus. Neck: Trachea normal and normal range of motion. Neck supple. Cardiovascular: Normal rate, regular rhythm and normal heart sounds. Pulmonary/Chest: Effort normal and breath sounds normal. Lymphadenopathy: He has no cervical adenopathy. Neurological: He is alert and oriented to person, place, and time. Skin: No rash noted. He is not diaphoretic. ASSESSMENT/PLAN: 1. Acute otitis externa of right ear, unspecified type - ICD9: 380.10, ICD10: H60.501 (primary diagnosis) -education material provided -use medication as prescribed -f/u if no better in 3-5 days -discussed proper ear hygiene -discussed prevention - OFLOXACIN 0.3 % EAR DROPS 2. Acute otitis media, right - ICD9: 382.9, ICD10: H66.91 - Will begin treatment with Amoxicillin for 10 days - Supportive care with plenty of fluids, rest, and analgesia prn. - Follow up in 3-5 days if symptoms persist or worsen. - AMOXICILLIN 875 MG TABLET Prescription instructions reviewed with patient as applicable. Patient advised if symptoms do not improve or if symptoms worsen sooner, to contact the office for further evaluation by their primary care physician. Potential red flag symptoms discussed with the patient. Reviewed appropriate action plan to take if red flag symptoms occur. Patient agreeable to treatment plan. Lester Mancini APRN.CNP CNOV Observed: 01/16/2018 Status: COMPLETED Source: [place] 10:15 AM [facility] REPOSIT[facility] Office Visit ([facility]) DI VAZQUEZ ([id number]) 1955 M Date Time Provider Department 01/16/18 10:15 AM LESTER MANCINI ([facility]) [facility] During your visit today, we recorded the following information about you: Temperature Pulse Respiration Blood pressure 98.7 degrees 82/minute 16/minute 118/78 Weight 86.6 kg Lester Mancini APRN.CNP 01/16/2018 10:49 AM Signed Subjective HPI HPI Di Vazquez is a 62 year old male who presents today for CC of ear pain sinus congestion. This started 1 week ago. Has tried otc medication with mild relief. Symptoms are worsened by nothing. Risk factors hx of allergies, frequent swimming. 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 fluticasone (FLONASE) 50 mcg/actuation nasal spray Use 1 Cecil in each nostril once daily. naproxen (NAPROSYN) 500 mg tablet Take 1 tablet by mouth twice daily as needed (for pain/inflammation). Take with food. Omeprazole Magnesium (PRILOSEC OTC) 20 mg tablet Take 1 tablet by mouth daily before breakfast. 1/2 hr before meal. multivitamin tablet Take 1 tablet by mouth once daily. cholecalciferol, Vitamin D3, (VITAMIN D3) 50,000 unit cap capsule Take 1 capsule by mouth once each week. Dr. Wesley FAMILY HISTORY Problem Relation Age of Onset - Cancer Mother melanoma - Arthritis Mother rheumatiod - Heart Paternal Grandfather - Diabetes Maternal Grandmother - COPD Paternal Grandfather - Hypertension Father - Heart Father pacemaker - Hypertension Sister Social History Substance Use Topics - Smoking status: Never Smoker - Smokeless tobacco: Never Used - Alcohol use Yes Comment: occasionally Review of Systems Constitutional: Negative for chills, fever and weight loss. HENT: Positive for congestion and ear pain. Negative for ear discharge, nosebleeds and sore throat. Respiratory: Positive for cough (mild). Negative for shortness of breath and wheezing. Musculoskeletal: Negative for neck pain. Objective Blood pressure 118/78, pulse 82, resp. rate 16, weight 86.6 kg (191 lb). Physical Exam Constitutional: He is oriented to person, place, and time and well-developed, well-nourished, and in no distress. Non-toxic appearance. He does not have a sickly appearance. No distress. HENT: Head: Normocephalic and atraumatic. Right Ear: Hearing and ear canal normal. There is drainage, swelling and tenderness. Tympanic membrane is erythematous (mild) and bulging. Tympanic membrane is not perforated. Left Ear: Hearing, tympanic membrane, external ear and ear canal normal. Nose: Nose normal. Mouth/Throat: Uvula is midline, oropharynx is clear and moist and mucous membranes are normal. Eyes: Pupils are equal, round, and reactive to light. Conjunctivae and lids are normal. Right eye exhibits no discharge. Left eye exhibits no discharge. No scleral icterus. Neck: Trachea normal and normal range of motion. Neck supple. Cardiovascular: Normal rate, regular rhythm and normal heart sounds. Pulmonary/Chest: Effort normal and breath sounds normal. Lymphadenopathy: He has no cervical adenopathy. Neurological: He is alert and oriented to person, place, and time. Skin: No rash noted. He is not diaphoretic. ASSESSMENT/PLAN: 1. Acute otitis externa of right ear, unspecified type - ICD9: 380.10, ICD10: H60.501 (primary diagnosis) -education material provided -use medication as prescribed -f/u if no better in 3-5 days -discussed proper ear hygiene -discussed prevention - OFLOXACIN 0.3 % EAR DROPS 2. Acute otitis media, right - ICD9: 382.9, ICD10: H66.91 - Will begin treatment with Amoxicillin for 10 days - Supportive care with plenty of fluids, rest, and analgesia prn. - Follow up in 3-5 days if symptoms persist or worsen. - AMOXICILLIN 875 MG TABLET Prescription instructions reviewed with patient as applicable. Patient advised if symptoms do not improve or if symptoms worsen sooner, to contact the office for further evaluation by their primary care physician. Potential red flag symptoms discussed with the patient. Reviewed appropriate action plan to take if red flag symptoms occur. Patient agreeable to treatment plan. Lester Mancini APRN.COREY Mancini APRN.COREY 01/16/2018 10:24 AM Signed [facility] PATIENT INFO EXTERNAL OTITIS OVERVIEW External otitis is a condition that occurs when the ear canal becomes irritated. The ear canal is the part of the ear that leads from the outer ear to the ear drum. External otitis can develop as a result of an infection, allergy, or skin problem. Swimmer's ear is the name for external otitis that occurs in a person who swims frequently. External otitis is different from otitis media (middle ear infections). When a person says that they have an ear infection, they usually mean that they have otitis media. This article will discuss external otitis that is caused by an infection, as well as ways to prevent future episodes of external otitis. EXTERNAL OTITIS RISK FACTORS Several factors can increase your risk of developing external otitis. ? Cleaning the ear canal removes ear wax. Ear wax serves to protect the ears from water, bacteria, and injury. Excessive cleaning or scratching can injure the skin, potentially leading to infection. ? Swimming on a regular basis removes some of the ear wax, allowing water to soften the skin. Bacteria, which normally live in the ear canal, can then enter the skin more easily. ? Wearing devices that block the ear canals, such as hearing aids, headphones, or ear plugs, can increase the risk of external otitis (if worn frequently) by injuring the skin. EXTERNAL OTITIS SYMPTOMS The most common symptoms of external otitis include: Pain in the outer ear, especially when the ear is pulled or moved ? Itchiness of the ear ? Fluid or pus leaking from the ear ? Difficulty hearing clearly EXTERNAL OTITIS TREATMENT Treatment of external otitis aims to reduce pain and eliminate the infection. In some cases, your healthcare provider will flush out your ear with water and hydrogen peroxide before you begin treatment; this speeds healing by removing skin cells and excess ear wax. Ear drops ? Ear drops are usually prescribed to reduce pain and swelling caused by external otitis. It is important to apply the ear drops correctly so that they reach the ear canal: ? Lie on your side or tilt your head towards the opposite shoulder. ? Fill the ear canal with drops. ? Lie on your side for [address] cotton ball in the ear canal for 20 minutes. ? Finish the entire course of treatment, even if you begin to feel better within a few days. You should begin to feel better within 36 to 48 hours of starting treatment. If your pain worsens or does not improve within this time period, call your healthcare provider. Pain medication ? If you have bothersome ear pain, you can take a non-prescription pain medication. Avoid getting ears wet ? During treatment, you should avoid getting the inside of your ears wet. While showering, you can place a cotton ball coated with petroleum jelly in the ear. However, you should not swim for 7 to 10 days after starting treatment. Avoid wearing hearing aids and in-ear headphones until pain improves. EXTERNAL OTITIS PREVENTION The old saying, Don't put anything smaller than your elbow in your ear to clean the ear is true. The ear is self-cleaning; fingers, towels, cotton-tipped applicators, and other devices should not be used to clean the inside of the ears. If you feel that you need to clean excessive wax from your ears, talk to your healthcare provider first. S/he may want to examine your ears to see if the ear wax is excessive. It is normal to have some ear wax (also called cerumen). If you have an excessive amount of ear wax, talk to your healthcare provider about safe ways to clean your ears. If you swim frequently, experts recommend the following tips to reduce the chance of developing external otitis. ? Shake your ears dry after swimming ? Blow dry your ears on a low setting, holding the dryer 12 inches away. ? Use ear drops after swimming to prevent ear infections; these are available at most pharmacies without a prescription. ? Consider wearing ear plugs made for swimming. OTITIS MEDIA GENERAL INFORMATION: Otitis media is an infection of the middle ear. The middle ear sits behind the eardrum. This infection may be caused by a virus or bacteria and often follows a cold. Children often have repeat ear infections. Otitis media is not contagious. INSTRUCTIONS: 1. An antibiotic has been prescribed. It should be taken exactly as prescribed. Do not stop the medicine even if the symptoms go away. 2. [id number] pain medication may be taken or other pain medication as prescribed by the doctor. 3. Nothing should be placed in the ear unless instructed by your doctor. 4. The patient may return to school/daycare or work when the temperature is normal (98.6 F or 37 C). 5. The patient should not swim while the ear is infected. CONTACT YOUR DOCTOR IF YOU OR YOUR CHILD: 1. Does not feel better within 36 hours. 2. Develops a temperature over 102E F (39E C). 3. Starts vomiting or has diarrhea. 4. Develops drainage from the affected ear. 5. Has any new problem that may be related to the medicine prescribed. RETURN TO THE ED IF: 1. You or your child has a severe headache or pain around the ear. 2. You or your child notice swelling around the ear. 3. You or your child has a seizure (convulsion), twitching of the facial muscles, or passes out. 4. You or your child is dizzy, has a stiff neck, or cannot walk or talk normally. 5. Your child becomes more irritable or listless (not interested in his or her surroundings, does not get soothed by you holding him or her). Referring Provider: SELF [[id number]] Allergies As of Date: 01/16/2018 Noted Allergy Reaction NO KNOWN DRUG ALLERGIES 05/27/2005 Date Reviewed: 01/16/2018 Reviewed by: Lester Mancini - Fully Assessed Reason for Visit: Ear Pain [[id number]] Cmt: since Wednesday-flying to [place] Sat Sinus congestion [Other] Primary Visit Diagnosis:Acute otitis externa of right ear, unspecified type [H60.501] Other Visit Diagnosis:Acute otitis media, right [H66.91] Order(s):amoxicillin (AMOXIL) 875 mg tabletTake 1 tablet by mouth twice daily for 10 days.Disp: 20 tabletRfl: 0 ofloxacin (FLOXIN) 0.3 % otic solutionUse 10 Drops in both ears once daily for 7 days.Disp: 1 BottleRfl: 0 Prescriptions as of 01/16/2018 Sig: LISINOPRIL 10 MG-HYDROCHLOROT* Take 1 tablet by mouth once d* FLUTICASONE 50 MCG/ACTUATION * Use 1 Cecil in each nostril o* NAPROXEN 500 MG TABLET Take 1 tablet by mouth twice * OMEPRAZOLE MAGNESIUM 20 MG TA* Take 1 tablet by mouth daily * MULTIVITAMIN TABLET Take 1 tablet by mouth once d* AMOXICILLIN 875 MG TABLET Take 1 tablet by mouth twice * OFLOXACIN 0.3 % EAR DROPS Use 10 Drops in both ears onc* CHOLECALCIFEROL (VITAMIN D3) * Take 1 capsule by mouth once * Problem List As Of Date 01/16/2018 Noted Resolved Lumbago [M54.5] INVALID FOR*05/24/2014 Sprain and strain of unspecified site of should*INVALID FOR*05/24/2014 Hyperlipidemia with target LDL less than 130 [E*INVALID FOR* Essential hypertension, benign [I10] INVALID FOR* Supraspinatus tendon tear [S46.819A] INVALID FOR* Degenerative disc disease, lumbar [M51.36] INVALID FOR* Derangement of medial meniscus of left knee due*INVALID FOR* Benign prostatic hyperplasia with lower urinary*INVALID FOR* Osteoarthritis of left shoulder [M19.012] INVALID FOR* Osteoarthritis of right shoulder [M19.011] INVALID FOR* Spondylosis of lumbar region without myelopathy*INVALID FOR* Other instructions from your clinician: [facility] PATIENT INFO EXTERNAL OTITIS OVERVIEW External otitis is a condition that occurs when the ear canal becomes irritated. The ear canal is the part of the ear that leads from the outer ear to the ear drum. External otitis can develop as a result of an infection, allergy, or skin problem. Swimmer's ear is the name for external otitis that occurs in a person who swims frequently. External otitis is different from otitis media (middle ear infections). When a person says that they have an ear infection, they usually mean that they have otitis media. This article will discuss external otitis that is caused by an infection, as well as ways to prevent future episodes of external otitis. EXTERNAL OTITIS RISK FACTORS Several factors can increase your risk of developing external otitis. ? Cleaning the ear canal removes ear wax. Ear wax serves to protect the ears from water, bacteria, and injury. Excessive cleaning or scratching can injure the skin, potentially leading to infection. ? Swimming on a regular basis removes some of the ear wax, allowing water to soften the skin. Bacteria, which normally live in the ear canal, can then enter the skin more easily. ? Wearing devices that block the ear canals, such as hearing aids, headphones, or ear plugs, can increase the risk of external otitis (if worn frequently) by injuring the skin. EXTERNAL OTITIS SYMPTOMS The most common symptoms of external otitis include: Pain in the outer ear, especially when the ear is pulled or moved ? Itchiness of the ear ? Fluid or pus leaking from the ear ? Difficulty hearing clearly EXTERNAL OTITIS TREATMENT Treatment of external otitis aims to reduce pain and eliminate the infection. In some cases, your healthcare provider will flush out your ear with water and hydrogen peroxide before you begin treatment; this speeds healing by removing skin cells and excess ear wax. Ear drops ? Ear drops are usually prescribed to reduce pain and swelling caused by external otitis. It is important to apply the ear drops correctly so that they reach the ear canal: ? Lie on your side or tilt your head towards the opposite shoulder. ? Fill the ear canal with drops. ? Lie on your side for [address] a cotton ball in the ear canal for 20 minutes. ? Finish the entire course of treatment, even if you begin to feel better within a few days. You should begin to feel better within 36 to 48 hours of starting treatment. If your pain worsens or does not improve within this time period, call your healthcare provider. Pain medication ? If you have bothersome ear pain, you can take a non-prescription pain medication. Avoid getting ears wet ? During treatment, you should avoid getting the inside of your ears wet. While showering, you can place a cotton ball coated with petroleum jelly in the ear. However, you should not swim for 7 to 10 days after starting treatment. Avoid wearing hearing aids and in-ear headphones until pain improves. EXTERNAL OTITIS PREVENTION The old saying, Don't put anything smaller than your elbow in your ear to clean the ear is true. The ear is self-cleaning; fingers, towels, cotton-tipped applicators, and other devices should not be used to clean the inside of the ears. If you feel that you need to clean excessive wax from your ears, talk to your healthcare provider first. S/he may want to examine your ears to see if the ear wax is excessive. It is normal to have some ear wax (also called cerumen). If you have an excessive amount of ear wax, talk to your healthcare provider about safe ways to clean your ears. If you swim frequently, experts recommend the following tips to reduce the chance of developing external otitis. ? Shake your ears dry after swimming ? Blow dry your ears on a low setting, holding the dryer 12 inches away. ? Use ear drops after swimming to prevent ear infections; these are available at most pharmacies without a prescription. ? Consider wearing ear plugs made for swimming. OTITIS MEDIA GENERAL INFORMATION: Otitis media is an infection of the middle ear. The middle ear sits behind the eardrum. This infection may be caused by a virus or bacteria and often follows a cold. Children often have repeat ear infections. Otitis media is not contagious. INSTRUCTIONS: 1. An antibiotic has been prescribed. It should be taken exactly as prescribed. Do not stop the medicine even if the symptoms go away. 2. Rfjp-lem-ntrphze pain medication may be taken or other pain medication as prescribed by the doctor. 3. Nothing should be placed in the ear unless instructed by your doctor. 4. The patient may return to school/daycare or work when the temperature is normal (98.6 F or 37 C). 5. The patient should not swim while the ear is infected. CONTACT YOUR DOCTOR IF YOU OR YOUR CHILD: 1. Does not feel better within 36 hours. 2. Develops a temperature over 102E F (39E C). 3. Starts vomiting or has diarrhea. 4. Develops drainage from the affected ear. 5. Has any new problem that may be related to the medicine prescribed. RETURN TO THE ED IF: 1. You or your child has a severe headache or pain around the ear. 2. You or your child notice swelling around the ear. 3. You or your child has a seizure (convulsion), twitching of the facial muscles, or passes out. 4. You or your child is dizzy, has a stiff neck, or cannot walk or talk normally. 5. Your child becomes more irritable or listless (not interested in his or her surroundings, does not get soothed by you holding him or her). Prescriptions ordered this encounter Disp Refills Start End AMOXICILLIN 875 MG TABLET 20 t* 0 01/16/2018 01/26/2018 Route: ORAL Sig: Take 1 tablet by mouth twice daily for 10 days. OFLOXACIN 0.3 % EAR DROPS 1 Heriberto* 0 01/16/2018 01/23/2018 Route: BOTH EARS Sig: Use 10 Drops in both ears once daily for 7 days. Encounter Status:Closed by LESTER MANCINI CNP on 01/16/18 PT D/C SUMMARY (1) Observed: 10/21/2017 Status: F Source: [place] 1:35 PM [facility] REPOSITORY [facility] Physical Therapy [address] [place], [place] [address] Fax REHABILITATION SERVICES DISCHARGE SUMMARY MR#: [id number] Acct: [id number] Name: DI VAZQUEZ Rep #: [id number] : 1955 62 From: Samuel Doss DPT Referring Dr.: DAR WESLEY Status: REG RCR Insurance: [employer] SELF PAY INSURANCE HP - PT D/C Summary It has been my pleasure to treat DI VAZQUEZ under orders from Dar Wesley MD, for the diagnosis of R total shoulder replacement for a total of 7 visit(s). Discharge Date: 10/19/17 Please see the following information for a summary of their discharge status. - Subjective Subjective: Pt. reports no issues currently. He has been back to mulching and some work without pain, but muscle soreness. I talked to patient about not over doing and continuing to strengthen with in eye sight ranges. Pt. consents. - Pain R shoulder Pain Intensity (Out of 10): 0 - Overall Improvement % Improvement: 95 - Objective Objective/Function: ROM- R shoulder- flexion 175deg, abd 173deg, functional ER C6, functional IR T12. No pain with testing this date. MMT- R shoulder- flexion 4+/5, abd 4+/5, ext 5/5, ER 4+/5, IR 5/5. No pain with testing. Pt. has expected ROM and progression of strengthening as expected. Pt. report no issues with work or with sleeping at this point in time. He is back to work and household work without issues. He does report increased muscle soreness with activities, but is very pleased with progress. - Goals Goal 1:: Pt. to be I with HEP. Goal Progress: Goal Met Goal 2:: Pt. to have increased PROM of R shoulder to flexion 170deg, abd 170deg, ER 50deg, IR 50deg. Goal Progress: Goal Met Goal 3:: Pt. to have full R shoulder AROM to allow for increased ability to complete all functional mobility without increase in symptoms. Goal Progress: Goal Met Goal 4:: Pt. to have increased R shoulder strength to 4+/5 throughout allowing for increased tolerance with all recreational and work activities. Goal Progress: Progressing Goal 5:: Pt. to sleep throughout the night without increase in symptoms. Goal Progress: Goal Met Goal 6:: Pt. to return to all recreational activities without increase in symptoms. Goal Progress: Goal Met - Plan Plan: Pt. will be DC to HEP at this point in time. - D/C Information Discharge Comments: Pt. progressed as expected with PT. Pt. has close to full ROM and has improving strength. Pt. is back to all work and house hold work with minimal issues. He is progressing with strengthening as expected and is to progress with HEP for strengthening. Pt. will be DC from PT at this point in time and is to continue with HEP as instructed, pt. consents. If there are questions or concerns regarding this patient's physical therapy, please feel free to call me at [phone]. Thank you for the referral of this patient. Sincerely, Samuel Doss <Electronically signed by Samuel Doss DPT> 10/21/17 1335 CC: DAR WESLEY; Dmitri Case III, MD CLS Signed INITAL EVALUATION (1) Observed: 08/19/2017 Status: F Source: [place] - PT 8:53 AM [facility] REPOSITORY [facility] Physical Therapy [facility] [address] [place] [address] Fax REHABILITATION SERVICES INITIAL EVALUATION MR#: [id number] Acct: [id number] Name: DI VAZQUEZ Rep #: [id number] : 1955 62 From: Samuel Doss DPT Referring Dr.: DAR WESLEY Status: REG RCR Insurance: [employer] SELF PAY INSURANCE Patient's Visit Information DI VAZQUEZ is a 62 year old M referred to Physical Therapy by MD STEVE Ayoub with a diagnosis of R total shoulder replacement. Date of Evaluation: 08/18/17 Physical Therapist: Samuel Doss - Visit Plan Frequency: 2x /Week Duration: 2-4 Months Plan: Start with phase I progress this to HEP with spouse. Progress per protocol. Goal of 130deg of flexion and 30deg of ER passively by 4 weeks. - Subjective Subjective: Pt. 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 DOS 08/09/17. Pt. reports minimal pain at this point in time. Pt. reports that his other shoulder will likely need replaced as well, planning on having it down in March of 2018. Pt. remains in sling, but does take it off for periods of time at home while resting. Pt. has been having working on shoulder flexion to 90deg without issues. Pt. is having difficulty sleeping secondary to inability to get comfortable. Pt. recently saw physician who was happy with current progress. Pt. 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 Pt. is hopeful to increase his ROM and get back to all recreational activities without limitations. - Pain R shoulder Pain Intensity (Out of 10): 0 Pain Intensity Range: 0, 2 - Objective POSTURE: Pt. keeps arm in guarded positioing while out of sling. Pt. has normal shoulder heights bilaterally. Pt. has slight FH positioning bilaterally with protracted scapulea bilaterally. PALAPTION: Pt. has normal well healing anterior incision. Pt. has no signs of infection, minimal heat/redness. Pt. has slight brusing and edeam in bicep and elbow. Pt. has presence of R bicep rupture without repair, (known to patient). NEUROLOGICAL: Pt. has normal sensation to light and sharp touch of bilateral UEs. Pt. has 2+ triceps and biceps bilaterally. ROM: L shoulder AROM- flexion 98deg, abd 88deg, functonal ER external auditory meatus, functional IR L5. R shoulder PROM- flexion- 116deg, scaption 118deg, ER at side 25deg. Pt. had soreness at end ranges, with empty end feels. Pt. has full elbow ROM, mild stiffness with extension. MMT- RUE not testing. LUE- elbow- 5/5 throughout; shoulder- flexion 4+/5, abd 4/5, ext 5/5, ER 4+/5, IR 4+/5. - Goals Goal 1:: Pt. to be I with HEP. Goal Time Frame: 4-6 Weeks Goal 2:: Pt. to have increased PROM of R shoulder to flexion 170deg, abd 170deg, ER 50deg, IR 50deg. Goal Time Frame: 4-6 Weeks Goal 3:: Pt. to have full R shoulder AROM to allow for increased ability to complete all functional mobility without increase in symptoms. Goal Time Frame: 6-8 Weeks Goal 4:: Pt. to have increased R shoulder strength to 4+/5 throughout allowing for increased tolerance with all recreational and work activities. Goal Time Frame: 8-12 Weeks Goal 5:: Pt. to sleep throughout the night without increase in symptoms. Goal Time Frame: 2-4 Weeks Goal 6:: Pt. to return to all recreational activities without increase in symptoms. Goal Time Frame: 12-16 Weeks - Rehabilitation Potential Physical Therapy Diagnosis: Pt. has signs and symptoms consistent with acute R total shoulder replacement with subsequent hypombility, weakness, increased pain and decreased functional use of RUE. Pt. would benefit from PT to initially increase his ROM, progressing to AROM and finally strengthening as able to get back to all recreational and work activities without limitations. Rehabilitation Potential: Excellent - Anticipated Interventions Patient/Client Instruction: Educate patient on: Condition, Plan of Care, Risk Factors, Benefits of Fitness Program For the Purpose of:: To improve decision making, To facilitate caregiver knowledge, To improve self management, To prevent re-injury, To improve ability to perform tasks related to life management, To improve tolerance to ADL's Therapeutic Exercise to Include: Strength training, Power training, Endurance training, Flexibilty training, Passive ROM, Active ROM, Scapular Strength/Stabilization For the Purpose of:: To decrease pain, To decrease swelling/inflammation, To increase ROM, To improve nutrient delivery to tissue, To increase oxygenation perfusion, To improve muscle performance and motor function, To increase tolerance to activity/condition/position, To improve performance and independence with ADL's, To improve health of tissue, To decrease soft tissue restriction, To increase flexibility/ROM Manual Therapy Techniques to Include: Mobilization, Passive ROM, Soft tissue mobilization For the Purpose of:: To decrease pain, To decrease swelling/inflammation, To increase ROM, To improve nutrient delivery to tissue IF ES: Yes Cryotherapy (ice pack, ice massage): Yes For the Purpose of:: To decrease pain, To decrease swelling/inflammation, To increase ROM Thank you for the opportunity to evaluate your patient. For Medicare and Medicare HMO plans, please review the plan of care and approve it. It will need to be FAXED BACK to us at [phone] for Medicare purposes. Please let me know if there are questions or concerns regarding this plan of care. Physician Signature: Date: <Electronically signed by Samuel Doss DPT> 08/19/17 0853 CC: DAR WESLEY; Dmitri Case III, MD CLS Signed For Medicare only, by signing this I certify the plan of care. Physicians Signature Date PROGRESS Observed: 07/27/2017 Status: COMPLETED Source: [place] 3:13 PM [facility] REPOSITORY HNO ID: [id number] Author: Dmitri Case III Service: (none) Author Type: Physician Type: Progress Notes Filed: 07/27/2017 5:58 PM Note Text: SUBJECTIVE: This is a 62 year old male that is here today for URI sx with cough, head congestion started 07/10. On 07/12 R ear became plugged. Seen in UC on 07/13 and tx with Amox 875mg bid. Now the URI sx have resolved but the R ear plugged sensation has remained. He denies having pain in the right ear. 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 fluticasone (FLONASE) 50 mcg/actuation nasal spray Use 1 Cecil in each nostril once daily. naproxen (NAPROSYN) 500 mg tablet Take 1 tablet by mouth twice daily as needed (for pain/inflammation). Take with food. Omeprazole Magnesium (PRILOSEC OTC) 20 mg tablet Take 1 tablet by mouth daily before breakfast. 1/2 hr before meal. multivitamin tablet Take 1 tablet by mouth once daily. No current facility-administered medications on file prior to visit. FAMILY HISTORY Problem Relation Age of Onset - Cancer Mother melanoma - Arthritis Mother rheumatiod - Heart Paternal Grandfather - Diabetes Maternal Grandmother - COPD Paternal Grandfather - Hypertension Father - Heart Father pacemaker - Hypertension Sister Social History Substance Use Topics - Smoking status: Never Smoker - Smokeless tobacco: Never Used - Alcohol use Yes Comment: occasionally . vs BP 110/76 Pulse 76 Temp 36.5 ?C (97.7 ?F) (Tympanic) Resp 20 Wt 87.3 kg (192 lb 8 oz) BMI 29.18 kg/m2 . OBJECTIVE: APPEARANCE Well appearing, alert, in no acute distress, well-hydrated, well nourished. EARS External ears normal, canals clear NECK Supple, no adenopathy; thyroid symmetric, normal size, ASSESSMENT: Eustachian tube dysfunction of the right ear PLAN: careful ear popping as needed--demonstrated technique may proceed with planned surgery Dmitri Case III MD PROGRESS Observed: 07/13/2017 Status: COMPLETED Source: [place] 7:15 PM [facility] REPOSITORY HNO ID: [id number] Author: Lester Melendez) Service: (none) Author Type: Nurse Practitioner Type: Progress Notes Filed: 07/13/2017 7:33 PM Note Text: HPI HPI Di Vazquez is a 62 year old male who presents today for CC of sore throat, cough, ear pain. This started 3 days ago. Has tried nothing. Symptoms are worsened by nothing. Risk factors sick exposures at work. Nonsmoker. Review of Systems Constitutional: Negative for chills, fever and weight loss. HENT: Positive for congestion and sore throat. Negative for ear pain and nosebleeds. Respiratory: Positive for cough. Negative for shortness of breath and wheezing. Musculoskeletal: Negative for neck pain. 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 fluticasone (FLONASE) 50 mcg/actuation nasal spray Use 1 Cecil in each nostril once daily. naproxen (NAPROSYN) 500 mg tablet Take 1 tablet by mouth twice daily as needed (for pain/inflammation). Take with food. Omeprazole Magnesium (PRILOSEC OTC) 20 mg tablet Take 1 tablet by mouth daily before breakfast. 1/2 hr before meal. multivitamin tablet Take 1 tablet by mouth once daily. FAMILY HISTORY Problem Relation Age of Onset - Cancer Mother melanoma - Arthritis Mother rheumatiod - Heart Paternal Grandfather - Diabetes Maternal Grandmother - COPD Paternal Grandfather - Hypertension Father - Heart Father pacemaker - Hypertension Sister Social History Substance Use Topics - Smoking status: Never Smoker - Smokeless tobacco: Never Used - Alcohol use Yes Comment: occasionally Blood pressure 110/80, pulse 64, temperature 37.3 ?C (99.1 ?F), temperature source Tympanic, resp. rate 18, weight 87.5 kg (193 lb). Physical Exam Constitutional: He is oriented to person, place, and time and well-developed, well-nourished, and in no distress. Non-toxic appearance. He does not have a sickly appearance. No distress. HENT: Head: Normocephalic and atraumatic. Right Ear: Hearing, tympanic membrane, external ear and ear canal normal. Left Ear: Hearing, external ear and ear canal normal. Tympanic membrane is erythematous and bulging. Tympanic membrane is not perforated. Nose: Nose normal. Mouth/Throat: Uvula is midline, oropharynx is clear and moist and mucous membranes are normal. Eyes: Conjunctivae and lids are normal. Pupils are equal, round, and reactive to light. Right eye exhibits no discharge. Left eye exhibits no discharge. No scleral icterus. Neck: Trachea normal and normal range of motion. Neck supple. Cardiovascular: Normal rate, regular rhythm and normal heart sounds. Pulmonary/Chest: Effort normal and breath sounds normal. Lymphadenopathy: He has no cervical adenopathy. Neurological: He is alert and oriented to person, place, and time. Skin: No rash noted. He is not diaphoretic. ASSESSMENT/PLAN: 1. Acute otitis media, left - ICD9: 382.9, ICD10: H66.92 (primary diagnosis) - Will begin treatment with Amoxicillin for 10 days - Supportive care with plenty of fluids, rest, and analgesia prn. - Follow up in 3-5 days if symptoms persist or worsen. - AMOXICILLIN 875 MG TABLET 2. Viral URI with cough - ICD9: 465.9, ICD10: J06.9, B97.89 - Discussed viral etiology and rationale for treatment. - Symptomatic treatment with prn analgesia - Supportive care with fluids and rest - Follow up in 3-5 days if symptoms persist or sooner if worsening of symptoms Prescription instructions reviewed with patient as applicable. Patient advised if symptoms do not improve or if symptoms worsen sooner, to contact the office for further evaluation by their primary care physician. Potential red flag symptoms discussed with the patient. Reviewed appropriate action plan to take if red flag symptoms occur. Patient agreeable to treatment plan. Lester Mancini CNP ALLERGIES ALLERGIES DATE TYPE / CODE NAME / CODE REACTION SEVERITY SOURCE 05/27/[address] [facility] Class/29172 ALLERGIES [place] 1003(SNOMED Repository CT) ENCOUNTERS ENCOUNTERS ADMIT/DISCHARGE ACCOUNT ADMITTING ENCOUNTER LOCATION SOURCE NUMBER CLASS 06/28/2018 [id number] [facility] ing:MTLAB Repository 06/08/2018 [id number] [facility] ing:PT Repository 05/22/2018/05/24/20 [id number] Ambulatory [address] Repository 01/16/2018/01/19/20 [id number] Ambulatory [address] Repository 10/19/2017/10/20/[id number] ing:PT Repository 07/27/2017/07/28/19 [id number] Ambulatory [address] Repository 07/13/2017/07/13/[id number] Repository PAYERS PAYERS ENCOUNTER GUARANTOR PAYER SUBSCRIBER SOURCE 06/28/2018 DI Sue [id number] Insurance:ANTHEMPolic UNDERWOODDOB: [facility] Number: [id number] [id number] Repository [address]Idb: [phone]) Date:1032-51-37[phone] () [id number], [place] [address]TA: 06/28/2018 Secondary NOT GIVENUNK Vikram Insurance:SELF PAY [facility] Number: Effective Repository Date:2018-06-27 06/08/2018 DI Brasher Primary DI R [place] [id number] Insurance:ANTHEMPolic UNDERWOODDOB: [facility] y Number: [id number] [id number] Repository [address]Cxl: ([phone]) Date:2245-43-17YW [phone] () [id number], [place] [address]MD: 06/08/2018 Secondary NOT GIVENUNK Vikram Insurance:SELF PAY [facility] Number: Effective Repository Date:2018-03-07 10/19/2017 Di Primary Di [place] [id number] Insurance:ANTHEMPolic UnderwoodDOB: [facility] y Number: [id number] [place], [place] [id number] Repository [address]Nef: (330) Date:3794-75-63JM [phone] () [id number], [place] [address]GV: 10/19/2017 Secondary NOT GIVENUNK [place] Insurance:SELF PAY [facility] Number: Effective Repository Date:2017-08-10
--- OUTSIDE RECORDS SUMMARY | 2018-08-30 07:25 | XMS RPT_ITS ---
:1955 Author Organization [facility] Address [address] [place] [address] Phone Care Team Providers Name Role Phone Jarred [place], Dar Stanley Reason for Visit Reason For Visit Description Start Date Postop - subsequent visit Preliminary reason for visit data, not yet signed by the author as of right shoulder post Right total shoulder arthroplasty on 08/09/2017 Preliminary reason for visit data, not yet signed by the author as of Chief Complaint Chief Complaint Description Start Date right shoulder post Right total shoulder arthroplasty on 08/09/2017 Preliminary chief complaint data, not yet signed by the author as of Instructions No information available. Plan of Care Type Date Detail Appointment 04:00 PM Dar Stern MD, [address] [facility], [address], [place], [address], Appointment 04:00 PM Dar Stern MD, [address] [facility], [address], [place], [address], Pending order XR SHOULDER 2 VWS-RT Medications Medication Instructions Start Stop Generic Name NDC Provider Date Date ASPIRIN 81 MG Twice daily for / ASPIRIN [id number] Viviana TABS thirty days 09 Czyztj PA-C VITAMIN D3 Take 1 capsule / CHOLECALCIFEROL [id number] Viviana 14625 UNIT by mouth daily 05 Czyztj CAPS for 5 days. PA-C Then take 1 capsule by mouth per week for 5 weeks OMEPRAZOLE 20 take 1 capsule / OMEPRAZOLE [id number] Rosette MG CPDR once daily 21 Ruma HERNÁNDEZN CLARITIN 10 take 1 tablet / LORATADINE 76945587943 Rosette MG TABS once daily 21 Ruma BURLAP SPREADER NAPROXEN 500 take 1 tablet / NAPROXEN 82191490454 Rosette MG TABS twice daily 21 Ruma BURLAP SPREADER LISINOPRIL take 1 tablet / LISINOPRIL TABS 83552810011 Rosette TABS once daily 21 [place] BURLAP SPREADER (please verify strength) Conditions or Problems Problem Name Problem Onset Status Entry Provider Comment Standard Annotate Code Date Date Description Status post [id number] Active Viviana History of reverse total (SNOMED CT) 08/13 08/13 Czyzyk operative arthroplasty of PA-C procedure on right shoulder shoulder Vitamin D 94291393 Active Viviana Vitamin D deficiency (SNOMED CT) 07/12 07/12 Czyzyk deficiency PA-C Primary 46697865 Active Tay S Degenerative osteoarthritis (SNOMED CT) 07/29 07/29 Velasquez MD joint disease of left shoulder of shoulder region Primary 75835855 Active Tay S Degenerative osteoarthritis (SNOMED CT) 07/29 07/29 Velasquez MD joint disease of right of shoulder shoulder region Allergies, Adverse Reactions, Alerts Observed no known allergies at Social History Concept Description Observation Name Observation Value Units Start Date Employment detail OCCUPATION#1 lumbar sales Preliminary social history data, not yet signed by the author as of Vital Signs Date Name Value Unit Description BMI (Body Mass 27.72 kg/m2 Body Mass Index Index) [Ratio] Preliminary vital sign data, not yet signed by the author as of BP Diastolic 78 mm[Hg] blood pressure, diastolic Preliminary vital sign data, not yet signed by the author as of BP Systolic 115 mm[Hg] blood pressure, systolic Preliminary vital sign data, not yet signed by the author as of Height 71 [in_us] height E&M Preliminary vital sign data, not yet signed by the author as of Height 180 cm height in centimeters E&M Preliminary vital sign data, not yet signed by the author as of Weight Measured 198 [lb_av] weight E&M Preliminary vital sign data, not yet signed by the author as of Weight Measured 90 kg weight in kilograms E&M Preliminary vital sign data, not yet signed by the author as of Results Date Name Value Unit Range Flag Description Office Visit: Postop - subsequent visit, Rm: 41 MEDS REVIEW Done Documentation of current medications (procedure) Preliminary observation data, not yet signed by the author as of Preliminary observation data, not yet signed by the author as of Clinical Summary: [facility]MS[facility] OOP account number Procedures Code Procedure Name Date Entry Date CPT-08441 Major Joint or Bursa injection G8731 Pain assessment documented as negative - follow-up not required G8427 Current medications documented 1036F Tobacco screening was negative - non user G8419 BMI outside of normal parameters - no follow-up plan/reason not given G8783 Blood pressure within normal parameters - no follow-up required 1006F Osteoarthritis symptoms and functional status assessed [facility]-[id number] Patient Encounter Medications Administered No information available. [...]
== END ==
PROVIDERS: Family Provider Family Medicine; PCP Family Medicine; Referring Provider Family Medicine; Visit Provider Family Medicine
DX: Z79.899 Other long term (current) drug therapy (principal)
CPT/HCPCS: 36415; 80048; 80061; 83036

== ENCOUNTER → 2019-06-15 07:01 | Outpatient (CLI) | payer BC, SELFPAY ==
[2019-06-15 10:29] LABS: ALB/GLOB Ratio 1.1 RATIO (0.9-2.4); AST(SGOT) 24 U/L (15-37); Alanine Aminotransfer ALT/SGPT 37 U/L (16-61); Albumin, Serum 3.8 g/dL (3.2-5.0); Alkaline Phosphatase 83 U/L (45-117); Anion Gap 6 (5-15); BUN 23 mg/dL (7-18); BUN/Creat Ratio 21.3 RATIO (10-20); Calcium,Total 9.1 mg/dL (8.5-10.1); Chloride 107 mmol/L (98-107); Cholesterol 182 mg/dL (200); Creatinine, Serum 1.08 mg/dL (0.70-1.30); EST Glomerular Filtration Rate 74 mL/min (>60); Est Glom Filt Rate - Afr Amer 89 mL/min (>60); Globulin 3.4 g/dL (2.2-4.2); Glucose 91 mg/dL (74-106); High Density Lipoprotein 67 mg/dL; Potassium 3.9 mmol/L (3.5-5.1); Protein, Total 7.2 g/dL (6.4-8.2); Sodium Level 140 mmol/L (136-145); Triglycerides 88 mg/dL; Very Low Density Lipoprotein 18 mg/dL (5-40)
== END ==
PROVIDERS: Family Provider Family Medicine; PCP Family Medicine; Referring Provider Family Medicine; Visit Provider Family Medicine
DX: I10 Essential (primary) hypertension (principal); E78.5 Hyperlipidemia, unspecified
CPT/HCPCS: 36415; 80053; 80061

== ENCOUNTER → 2020-05-17 08:49 | Outpatient (CLI) | payer BC, SELFPAY ==
[2020-05-17 12:11] LABS: ALB/GLOB Ratio 1.2 RATIO (0.9-2.4); AST(SGOT) 27 U/L (15-37); Alanine Aminotransfer ALT/SGPT 38 U/L (16-61); Alkaline Phosphatase 91 U/L (45-117); Anion Gap 4 (5-15); BUN 33 mg/dL (7-18); BUN/Creat Ratio 30.3 RATIO (10-20); Calcium,Total 9.6 mg/dL (8.5-10.1); Chloride 105 mmol/L (98-107); Cholesterol 188 mg/dL (200); Creatinine, Serum 1.09 mg/dL (0.70-1.30); EST Glomerular Filtration Rate 73 mL/min (>60); Est Glom Filt Rate - Afr Amer 88 mL/min (>60); Globulin 3.4 g/dL (2.2-4.2); Glucose 94 mg/dL (74-106); High Density Lipoprotein 61 mg/dL; Potassium 4.3 mmol/L (3.5-5.1); Protein, Total 7.4 g/dL (6.4-8.2); Sodium Level 139 mmol/L (136-145); Triglycerides 75 mg/dL; Very Low Density Lipoprotein 15 mg/dL (5-40)
== END ==
PROVIDERS: PCP Family Medicine; Referring Provider Family Medicine; Visit Provider Family Medicine
DX: E78.5 Hyperlipidemia, unspecified (principal)
CPT/HCPCS: 36415; 80053; 80061

== ENCOUNTER → 2020-05-24 07:25 | Outpatient (CLI) | payer BC, SELFPAY ==
[2020-05-24 10:06] LABS: Absolute Lymphocyte Count 1.05 X10^3/uL (0.83-4.51); Absolute Neutrophil Count 4.3 X10^3/uL (2.0-7.7); Basophil# 0.03 X10^3/uL; Basophil% 0.5 % (0-1); Eosinophil# 0.15 X10^3/uL; Eosinophils% 2.4 % (0-5); Hematocrit 47.8 % (40-54); Hemoglobin 15.3 g/dL (13.0-16.5); Lymphocyte # 1.05 X10^3/ul (4.0); Lymphocyte % 16.7 % (19-41); Mean Corpuscular Hgb 29.4 pg (27.0-32.0); Mean Corpuscular Volume 91.9 fL (80-94); Mean Platelet Vol. 9.2 fl (6.2-12.0); Monocyte# 0.68 X10^3/uL; Monocyte% 10.8 % (0-10); NRBC Flagged by Analyzer 0 % (0-5); Neutrophil # 4.33 X10^3/uL (2.7-7.7); Platelet Count 444 K/mm3 (150-450); RBC Distribution Width SD 44.1 fl (35.1-43.9); White Blood Count 6.3 K/mm3 (4.4-11.0)
[2020-05-24 10:42] LABS: Hemoglobin A1c 5.5 % (3.8-5.6)
[2020-05-24 10:45] LABS: AST(SGOT) 34 U/L (15-37); Alanine Aminotransfer ALT/SGPT 41 U/L (16-61); Albumin, Serum 3.6 g/dL (3.2-5.0); Alkaline Phosphatase 89 U/L (45-117); Anion Gap 6 (5-15); BUN 26 mg/dL (7-18); BUN/Creat Ratio 24.1 RATIO (10-20); Calcium,Total 9.1 mg/dL (8.5-10.1); Chloride 108 mmol/L (98-107); Cholesterol 179 mg/dL (200); Creatinine, Serum 1.08 mg/dL (0.70-1.30); EST Glomerular Filtration Rate 73 mL/min (>60); Est Glom Filt Rate - Afr Amer 89 mL/min (>60); Globulin 3.5 g/dL (2.2-4.2); Glucose 103 mg/dL (74-106); High Density Lipoprotein 61 mg/dL; PSA,Total - Annual Screen 1.63 ng/mL (0.00-4.00); Potassium 4.2 mmol/L (3.5-5.1); Protein, Total 7.1 g/dL (6.4-8.2); Sodium Level 140 mmol/L (136-145); Triglycerides 93 mg/dL; Very Low Density Lipoprotein 19 mg/dL (5-40)
== END ==
PROVIDERS: PCP Family Medicine; Referring Provider Nurse Practitioner Family; Visit Provider Nurse Practitioner Family
DX: I10 Essential (primary) hypertension (principal); E78.5 Hyperlipidemia, unspecified; R89.9 Unspecified abnormal finding in specimens from other organs, systems and tissues
CPT/HCPCS: 36415; 80053; 80061; 83036; 84153; 85025; G0103

== ENCOUNTER 2021-07-23 07:11 | Outpatient (CLI) | payer OTHER, SELFPAY ==
[2021-07-23 10:33] LABS: Hematocrit 46.1 % (40-54); Hemoglobin 15.4 g/dL (13.0-16.5); Mean Corp Hgb Conc 33.4 g/dL (32-36); Mean Corpuscular Hgb 30.4 pg (27.0-32.0); Mean Corpuscular Volume 91.1 fL (80-94); Mean Platelet Vol. 9.1 fl (6.2-12.0); Platelet Count 428 K/mm3 (150-450); RBC Distribution Width CV 13.4 % (11.6-14.6); RBC Distribution Width SD 44.9 fl (35.1-43.9); Red Blood Count 5.06 M/mm3 (4.6-6.2); White Blood Count 5.3 K/mm3 (4.4-11.0)
[2021-07-23 10:52] LABS: ALB/GLOB Ratio 1.1 RATIO (0.9-2.4); AST(SGOT) 24 U/L (15-37); Alanine Aminotransfer ALT/SGPT 33 U/L (16-61); Albumin, Serum 3.8 g/dL (3.2-5.0); Alkaline Phosphatase 85 U/L (45-117); Anion Gap 7 (5-15); BUN 28 mg/dL (7-18); BUN/Creat Ratio 26.2 RATIO (10-20); Calcium,Total 9.1 mg/dL (8.5-10.1); Chloride 106 mmol/L (98-107); Cholesterol 184 mg/dL (200); Creatinine, Serum 1.07 mg/dL (0.70-1.30); EST Glomerular Filtration Rate 74 mL/min (>60); Est Glom Filt Rate - Afr Amer 89 mL/min (>60); Globulin 3.4 g/dL (2.2-4.2); Glucose 89 mg/dL (74-106); High Density Lipoprotein 56 mg/dL; Potassium 4.2 mmol/L (3.5-5.1); Protein, Total 7.2 g/dL (6.4-8.2); Sodium Level 141 mmol/L (136-145); Triglycerides 102 mg/dL; Very Low Density Lipoprotein 20 mg/dL (5-40)
[2021-07-23 11:10] LABS: HIV - WCH Non-Reactive (Nonreactive)
== END 2021-07-23 23:59 | disposition home or self-care (01) ==
LOC: MTLAB 07:14
PROVIDERS: PCP Family Medicine; Referring Provider Family Medicine; Visit Provider Family Medicine
DX: Z11.4 Encounter for screening for human immunodeficiency virus [HIV] (principal)
CPT/HCPCS: 36415; 80053; 80061; 85027; 86703